=== PATIENT | female | born 1960 | race Caucasian/White ===

== ENCOUNTER 2021-07-09 14:46 | Outpatient (CLI) | payer OTHER, SELFPAY ==
--- NOTE | 2021-07-09 15:52 | USCV_ITS ---
Alfredo Tejal Age: 61 Gender: F : 1960 Exam Date: 07/09/2021 15:52 Ordering Phys: Yana Joe MD Technologist: Liya Rodriguez [place]am [place] [facility] [place]ication: Pain HISTORY: Lower extremity pain. PROCEDURES: Venous duplex imaging was performed in bilateral lower extremities. The following venous structures were evaluated: common femoral vein, profunda vein, proximal portion of the greater saphenous vein, superficial femoral vein, and the popliteal vein. In addition, the posterior tibial and peroneal trunk were evaluated. FINDINGS: Normal 2-D Doppler and augmentation and compressibility throughout the lower extremity venous structures. Additional imaging through the proximal calf veins also reveals no thrombus. Limited evaluation of the greater saphenous vein is patent with no thrombus. CONCLUSIONS No DVT bilateral lower extremities. Dr. Lou Lutz DO (Electronically Signed) Final Date: 09 July 2021 16:14 S
== END 2021-07-09 14:47 | disposition home or self-care (01) ==
LOC: US 14:50
PROVIDERS: PCP Family Medicine; Visit Provider Family Medicine
DX: M79.604 Pain in right leg (principal); M79.605 Pain in left leg
CPT/HCPCS: 93970

== ENCOUNTER 2021-07-15 13:02 | Outpatient (CLI) | payer OTHER, SELFPAY ==
--- NOTE | 2021-07-15 13:31 | CT_ITS ---
WS: [id number] CT ABDOMEN AND PELVIS NONCONTRAST HISTORY: HX OF CALCULUS OF KIDNEY TECHNIQUE: Imaging performed through the abdomen and pelvis. Coronal and sagittal reformats are submi tted. All CT scans at [facility] use at least one of these dose optimization techniques: auto mated exposure control; mA and/or kV adjustment per patient size (includes targeted exams where dose is matched to clinical indication); or iterative reconstruction. DLP: 1258.17 mGy.cm COMPARISON: None available. Lower thorax: Lung bases are clear. Visualized heart is normal. No hiatal hernia. Liver: Normal size liver. No mass or bile duct dilatation. Gallbladder: Prior cholecystectomy. Pancreas: Normal size and attenuation. Normal pancreatic duct. No pancreatitis or mass. Spleen: Normal. Adrenal glands: Normal. No mass. Right kidney: 2 mm nonobstructing calcification in the central kidney. No hydronephrosis or solid mas s. Left kidney: Nonobstructing 6 mm calcification in the upper pole. No obstruction. Normal size LEFT ur eter. Aorta: Moderate atherosclerosis of aorta. No aneurysm. Long segment RIGHT iliac artery stent. No free fluid, intraperitoneal air or significant lymphadenopathy. GI tract: Normal appendix. Extensive diverticular disease in the sigmoid colon. Mild narrowing of the sigmoid lumen but no adjacent inflammation. No abscess. Abdominal wall: Negative. No hernia. Pelvis: Atrophic uterus. No adnexal masses. Small amount of free fluid in the LEFT pelvis. Free fluid extends along the sigmoid colon. Osseous structures: Increase in the lumbar lordosis. Mild LEFT curvature. No fractures. CT/CT kidney stone [id number] IMPRESSION: 1. Nonobstructing 6 mm calcification LEFT kidney. No hydronephrosis or hydrour eter. 2. Numerous diverticula in the sigmoid colon. No definite evidence for acute d iverticulitis. There is a small amount of free fluid adjacent to the sigmoid co gabriela in the LEFT pelvis. There may be mild changes of acute diverticulitis that are not evident by cross-sectional imaging yet. The fluid may indicate a mild a cute sigmoid diverticulitis. 3. Normal appendix.
== END 2021-07-15 13:03 | disposition home or self-care (01) ==
PROVIDERS: PCP Family Medicine; Visit Provider Family Medicine
DX: Z87.442 Personal history of urinary calculi (principal); N20.0 Calculus of kidney; K57.30 Diverticulosis of large intestine without perforation or abscess without bleeding
CPT/HCPCS: 74176

== ENCOUNTER 2021-12-22 13:38 | Outpatient (CLI) | payer OTHER, SELFPAY ==
--- NOTE | 2021-12-22 13:49 | CT_ITS ---
WS: [id number] CTA OF THE CHEST WITH PULMONARY EMBOLISM PROTOCOL TECHNIQUE: High-resolution contrast enhanced CTA of the chest with coronal and sagittal reformatted i mages with pulmonary embolism protocol. MIP images are also reviewed. CLINICAL INFORMATION: RULE OUT PE COMPARISON: None. DLP: 508.[address] scans at [facility] use at least one of these dose optimization techniques: automated e xposure control; mA and/or kV adjustment per patient size (includes targeted exams where dose is matc hed to clinical indication); or iterative reconstruction. FINDINGS: Multiple enlarged lymph nodes RIGHT axilla the largest measuring 1.9 x 1.3 CM. Additional smaller pro minent lymph nodes LEFT axilla. Proximal main pulmonary arteries are normal. Normal segmental and subsegmental pulmonary arteries. No evidence of pulmonary embolus.Normal caliber thoracic aorta. No mediastinal or hilar lymphadenopathy . Adrenal glands are normal. Normal GE junction. Normal thoracic spine. Mild chronic emphysematous changes. No acute pulmonary infiltrates. No suspicious lung parenchymal op acities. CT/CT angio chest PE protcl [id number] IMPRESSION: 1. No evidence of pulmonary embolus. Proximal main pulmonary arteries are norm al. 2. Enlarged lymph nodes in the RIGHT axilla the largest measuring 1.9 x 1.3 CM . Recommend further evaluation with ultrasound 3. No mediastinal or hilar lymphadenopathy. 4. No acute pulmonary infiltrates. Mild chronic emphysematous changes. 5. No other significant findings.
[2021-12-22] MEDS: iohexol 350 mg/mL 100 mL Btl IV (14:17)
== END 2021-12-22 13:39 | disposition home or self-care (01) ==
LOC: RAD 13:43
PROVIDERS: PCP Family Medicine; Visit Provider Family Medicine
DX: R06.00 Dyspnea, unspecified (principal)
CPT/HCPCS: 71275

== ENCOUNTER 2022-02-09 14:29 | Outpatient (CLI) | payer OTHER, SELFPAY ==
--- NOTE | 2022-02-09 14:51 | MM_ITS ---
WS: [id number] BILATERAL SCREENING DIGITAL BREAST TOMOSYNTHESIS MAMMOGRAM WITH CAD HISTORY: SCREENING COMPARISON: 2019 Bilateral CC and MLO views with tomosynthesis and synthetic mammography submitted. Computer aided det ection analyzed. Breast composition: There are scattered areas of fibroglandular density. No suspicious masses, microc alcifications or architectural distortion. Asymmetries and calcifications within each breast are stab le. MM/[place] [id number] IMPRESSION: BI-RADS: 2-Benign FOLLOW UP: 1 Year Follow-up
== END 2022-02-09 14:30 | disposition home or self-care (01) ==
LOC: RAD 14:47
PROVIDERS: PCP Family Medicine; Visit Provider Family Medicine
DX: Z12.31 Encounter for screening mammogram for malignant neoplasm of breast (principal)
CPT/HCPCS: 77063; 77067

== ENCOUNTER 2022-03-02 12:43 | Outpatient (CLI) | payer OTHER, SELFPAY ==
--- NOTE | 2022-03-02 13:10 | US_ITS ---
WS: [id number] Exam: US soft tissue/extremity [id number] Date/Time of Exam: 03/02/2022 1:27 PM Reason For Exam: LOCALIZED ENLARGED LYMPH NODES-R AXILLARY LYMPHANDENOPATHY The right axilla is targeted for ultrasound evaluation. There are several fatty replaced lymph nodes in the right axilla. The largest node measures about 1.3 cm at greatest short axis dimension. These are nonspecific in appearance. No other masses were noted in the right axilla. No drainable fluid collections are seen. US/US soft tissue/extremity [id number] IMPRESSION: 1. Nonspecific lymph nodes in the right axilla as indicated above. The largest node measures 1.3 cm at greatest short axis dimension. This node shows central fatty replacement.
--- NOTE | 2022-03-02 13:14 | USCV_ITS ---
Tejal Fuentes Age: 61 Gender: F : 1960 Exam Date: 03/02/2022 13:40 Ordering Phys: Yana Joe MD Technologist: ARTURO [place] Location[place] [facility] [place]: BLE PAIN AND SWELLING HISTORY: Lower extremity swelling. Lower extremity pain. PROCEDURES: Venous duplex imaging was performed in bilateral lower extremities. The following venous structures were evaluated: common femoral vein, profunda vein, proximal portion of the greater saphenous vein, superficial femoral vein, and the popliteal vein. In addition, the posterior tibial and peroneal trunk were evaluated. Serial compression, augmentation maneuvers, and spectral Doppler flow evaluation were performed. FINDINGS: No evidence of DVT seen in any vessel visualized at this time. CONCLUSIONS No evidence of right lower extremity DVT. No evidence of left lower extremity DVT. Judd Bryson MD (Electronically Signed) Final Date: 03 March 2022 08:50 S
== END 2022-03-02 12:44 | disposition home or self-care (01) ==
LOC: RAD 12:46
PROVIDERS: PCP Family Medicine; Visit Provider Family Medicine
DX: R59.0 Localized enlarged lymph nodes (principal); M79.605 Pain in left leg; M79.604 Pain in right leg; M79.89 Other specified soft tissue disorders
CPT/HCPCS: 76882; 93970

== ENCOUNTER 2022-09-07 13:36 | Outpatient (CLI) | payer OTHER, SELFPAY ==
--- NOTE | 2022-09-07 13:46 | CT_ITS ---
WS: [id number] CT ABDOMEN PELVIS TECHNIQUE: Noncontrast CT of the abdomen and pelvis with coronal and sagittal reformatted images. CLINICAL INFORMATION: HISTORY OF CALCULUS OF KIDNEY COMPARISON: 07/15 DLP: 1078.[address] scans at [facility] use at least one of these dose optimization techniques: automated e xposure control; mA and/or kV adjustment per patient size (includes targeted exams where dose is matc hed to clinical indication); or iterative reconstruction. FINDINGS: LEFT renal pelvic calculus is new compared to previous measuring 7 mm. Mild dilatation of the LEFT re nal pelvis. This is new compared to previous. Distal LEFT ureter is decompressed. Pelvic phleboliths. Adrenal glands are normal. Mild dilatation RIGHT renal pelvis. Nonobstructing RIGHT renal parenchyma l calculus measuring 5 mm. RIGHT ureter is decompressed. Lung bases are well aerated.Noncontrast liver is normal. Tiny esophageal hiatal hernia. Adrenal gland s are normal. Noncontrast spleen and noncontrast pancreas are normal. Mild aortic calcification. RIGH T iliac stent. Fat-containing umbilical hernia. Sigmoid diverticulosis. No evidence of acute diverticulitis. Normal appendix in the RIGHT lower quadr ant. Mild chronic appearing compression superior endplate L2 with sclerosis is new from previous but has a chronic appearance. CT/CT kidney stone [id number] IMPRESSION: 1. New 7 mm calculus in the LEFT renal pelvis with mild dilatation. Distal LEF T ureter is decompressed. 2. Sigmoid diverticulosis. No evidence of acute diverticulitis. 3. Mild compression superior endplate L1 is new from the prior CT but has a ch ronic appearance with sclerosis. No retropulsion. Recommend correlation with lo w-back pain.
== END 2022-09-07 13:37 | disposition home or self-care (01) ==
PROVIDERS: PCP Family Medicine; Visit Provider Family Medicine
DX: Z87.442 Personal history of urinary calculi (principal); K57.30 Diverticulosis of large intestine without perforation or abscess without bleeding; N20.0 Calculus of kidney
CPT/HCPCS: 74176

== ENCOUNTER 2024-06-19 11:29 | Outpatient (CLI) | payer BC, MEDICAID, SELFPAY ==
--- NOTE | 2024-06-19 11:20 | MM_ITS ---
WS: [id number] Bilateral screening 3D tomosynthesis digital mammogram, 06/19/2024 11:41 AM Clinical Data: SCREENING Comparison: 02/09/2022, 05/27/2020. Findings: No spiculated masses or clustered calcifications are seen. There are no secondary signs of carcinoma . The breasts show scattered fibroglandular tissue. There are benign calcifications in both breasts a long with vascular calcifications. MM/MM scr BI tomosynthesis [id number] Impression: Negative bilateral mammogram unchanged. Recommend annual screening mammograms. BIRADS: 1 - Negative. FOLLOW UP: 1 Year Follow-up DENSITY: There are scattered areas of fibroglandular density. The CAD clerk checker was used
== END 2024-06-19 11:30 | disposition home or self-care (01) ==
LOC: MOBLMAM 11:45
PROVIDERS: PCP Student in an Organized Health Care Education/Training Program; Visit Provider Student in an Organized Health Care Education/Training Program
DX: Z12.31 Encounter for screening mammogram for malignant neoplasm of breast (principal); R92.323 Mammographic fibroglandular density, bilateral breasts; R92.1 Mammographic calcification found on diagnostic imaging of breast
CPT/HCPCS: 77063; 77067